=== PATIENT | male | born 1970 | race Hispanic/Latino ===

== ENCOUNTER 2019-10-04 20:41 | Inpatient (IN) | payer OTHER, MEDICARE ==
[~2019-10-04] VITALS: Ht 175.3 cm; Wt 90.4 kg
[2019-10-04] MEDS ORDERED: MORPHINE SULFATE 4 MG/1ML SYG ONE ×2 (21:34→22:50)
[2019-10-04] MEDS ORDERED: KETOROLAC TROMETHAMINE 30MG/ML ONE (21:34)
[2019-10-04 21:59] LABS: BASOPHILS % (AUTO) 0.2 % (0.0-5.0); EOSINOPHILS % (AUTO) 0.5 % (0.0-8.0); HEMATOCRIT 39.5 % (42-54); LYMPHOCYTES % (AUTO) 4.7 % (21.0-51.0); MEAN CORPUSCULAR HEMOGLOBIN 30.2 pg (27.0-33.0); MEAN CORPUSCULAR HGB CONC 34.7 g/dL (32.0-36.0); MONOCYTES % (AUTO) 5.1 % (3.0-13.0); NEUTROPHILS % (AUTO) 88.8 % (40.0-77.0); PLATELET COUNT (AUTO) 220 K/uL (130-400); RED BLOOD CELL COUNT(AUTO) 4.54 MIL/uL (4.50-6.20); RED CELL DISTRIBUTION WIDTH 12.3 % (11.0-15.5); WHITE BLOOD COUNT (AUTO) 19.8 K/uL (4.8-10.8)
[2019-10-04 22:12] LABS: CREATININE 1.1 mg/dL (0.5-1.5); POTASSIUM 3.8 mmol/L (3.5-5.1)
[2019-10-04 22:16] LABS: ALBUMIN 3.7 g/dL (3.5-5.0); BILIRUBIN,TOTAL 1.1 mg/dL (0.2-1.0); TOTAL PROTEIN, SERUM 6.6 g/dL (6.0-8.3)
[2019-10-04] MEDS ORDERED: ZOSYN 3.375GM+NS 50ML 50 ML IV ONE (22:38)
[2019-10-04] MEDS ORDERED: 1/2 NORMAL SALINE 1,000 ML IV ONE (23:42)
[2019-10-04] MEDS ORDERED: ONDANSETRON HCL 4 MG/2 ML VIAL ONE (23:48)
[2019-10-05] VITALS: BP 122/65
[2019-10-05] MEDS ORDERED: GABA600T10 PO (00:09)
[2019-10-05] MEDS ORDERED: MULT-1367 PO (00:09)
[2019-10-05] MEDS ORDERED: TELM40TA8 PO (00:09)
--- NOTE | 2019-10-05 01:08 | NUR ---
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
[2019-10-05] MEDS ORDERED: HYDROMORPHONE HCL 2 MG/ML VIAL IVP PRN (01:15)
[2019-10-05] MEDS ORDERED: HYDROMORPHONE HCL 0.5 MG/0.5 ML ML ONE ×2 (02:27→07:20)
[2019-10-05] MEDS ORDERED: 1/2 NORMAL SALINE 1,000 ML IV SCH (02:45)
[2019-10-05] MEDS: ZOSYN 3.375GM+NS 50ML 50 ML IV SCH ×3 (03:00→19:49)
[2019-10-05 04:00] VITALS: BP 131/68
[2019-10-05] MEDS: ONDANSETRON HCL 4 MG/2 ML VIAL IVP PRN ×4 (04:11→19:50)
[2019-10-05 05:07] LABS: HEMATOCRIT 37.4 % (42-54); MEAN CORPUSCULAR HEMOGLOBIN 30.5 pg (27.0-33.0); MEAN CORPUSCULAR HGB CONC 34.8 g/dL (32.0-36.0); MEAN CORPUSCULAR VOLUME 87.8 fL (79-99); RED BLOOD CELL COUNT(AUTO) 4.26 MIL/uL (4.50-6.20); RED CELL DISTRIBUTION WIDTH 12.4 % (11.0-15.5); WHITE BLOOD COUNT (AUTO) 18.4 K/uL (4.8-10.8)
[2019-10-05 05:28] LABS: ALBUMIN 3.1 g/dL (3.5-5.0); BILIRUBIN,TOTAL 1.4 mg/dL (0.2-1.0); CREATININE 1.3 mg/dL (0.5-1.5); POTASSIUM 3.9 mmol/L (3.5-5.1); TOTAL PROTEIN, SERUM 6.6 g/dL (6.0-8.3)
[2019-10-05 08:02] VITALS: BP 143/77
[2019-10-05] MEDS ORDERED: PANTOPRAZOLE 40 MG/VIAL IVP SCH (09:00)
[2019-10-05] MEDS: FAMOTIDINE/PF 20 MG/2 ML VIAL IV SCH ×2 (09:01→19:50)
[2019-10-05] MEDS: LACTATED RINGERS 1000ML 1,000 ML IV SCH ×2 (09:08→19:49)
[2019-10-05] MEDS: HYDROMORPHONE HCL 0.5 MG/0.5 ML ML IVP PRN ×3 (11:03→19:49)
[2019-10-05 11:32] VITALS: BP 141/76
[2019-10-05 16:15] VITALS: BP 140/67
[2019-10-05 20:31] VITALS: BP 121/76
[2019-10-06] VITALS (8 sets, daily range): BP systolic 136–176; BP diastolic 71–86
[2019-10-06] MEDS: HYDROMORPHONE HCL 0.5 MG/0.5 ML ML IVP PRN ×6 (00:07→22:30)
[2019-10-06] MEDS: ONDANSETRON HCL 4 MG/2 ML VIAL IVP PRN ×6 (00:11→22:30)
[2019-10-06] MEDS: LACTATED RINGERS 1000ML 1,000 ML IV SCH ×4 (00:11→21:28)
--- NOTE | 2019-10-06 00:16 | NUR ---
SHOWER/PAIN/NAUSEA Pt took a shower,medicated with Dilaudid for pain and Zofran for nausea.
[2019-10-06] MEDS: ZOSYN 3.375GM+NS 50ML 50 ML IV SCH ×3 (03:39→21:27)
--- NOTE | 2019-10-06 06:55 | NUR ---
MD Dr BONILLA came,he gave new orders.Report given to oncoming nurse Desiree Tadeo.
[2019-10-06 07:15] LABS: HEMATOCRIT 33.8 % (42-54); MEAN CORPUSCULAR HGB CONC 33.7 g/dL (32.0-36.0); MEAN CORPUSCULAR VOLUME 88.9 fL (79-99); RED BLOOD CELL COUNT(AUTO) 3.8 MIL/uL (4.50-6.20); RED CELL DISTRIBUTION WIDTH 12.7 % (11.0-15.5); WHITE BLOOD COUNT (AUTO) 17.1 K/uL (4.8-10.8)
[2019-10-06 07:31] LABS: ALBUMIN 2.6 g/dL (3.5-5.0); BILIRUBIN,TOTAL 1.1 mg/dL (0.2-1.0); CREATININE 1.1 mg/dL (0.5-1.5); POTASSIUM 3.6 mmol/L (3.5-5.1); TOTAL PROTEIN, SERUM 6.6 g/dL (6.0-8.3)
[2019-10-06] MEDS: FAMOTIDINE/PF 20 MG/2 ML VIAL IV SCH ×2 (08:22→21:27)
--- NOTE | 2019-10-06 10:53 | NUR ---
DCP: HOME SW met with pt who works at [facility] [employer], is independent of all ADLS, No DME or in home care services. PCP is Dr Curry and he uses [facility] when needed. Pt lives with his mother Genny Maldonado [phone]. Plan is home at mi Addendum: 10/06/19 at 1056 by ARRON ANTONIO SS Amended: Links added.
--- NOTE | 2019-10-06 15:02 | NUR ---
RD NOTIFICATION Pt admitted with Acute Cholecystitis. Pt NPO pending GI and Surgical evaluations, as per EMR. When medically feasible, Rec advance diet as tolerated to GI soft, Low Fat Diet order RD to follow up with Nutrition education. Addendum: 10/06/19 at [address] RD Amended: Links added.
--- NOTE | 2019-10-06 17:02 | NUR ---
DR BARBOSA CALL BACK. LABS REVIEWED, STATED HE DOES NOT NEED TO SEE THIS PATIENT. RECOMMENDS SX.
--- NOTE | 2019-10-06 18:30 | NUR ---
TALKED TO PATIENT ABOUT GI DOCTOR RECOMMENDING SX FOR HIM. EDUCATED PATIENT ON NEED FOR SX. PATIENT FINALLY AGREED. I TEXTED JOSIAS (DR PEG PATEL) BUT STILL WAITING ON TEXT OR CALL BACK. PATIENT IS NOW ON CLEAR LIQUID DIET, TOLERATING VERY WELL.
[2019-10-07] MEDS: ONDANSETRON HCL 4 MG/2 ML VIAL IVP PRN ×5 (02:30→21:19)
[2019-10-07] MEDS: HYDROMORPHONE HCL 0.5 MG/0.5 ML ML IVP PRN ×5 (02:30→21:20)
[2019-10-07 03:00] VITALS: BP 157/82
[2019-10-07 03:53] LABS: HEMATOCRIT 32.2 % (42-54); MEAN CORPUSCULAR HEMOGLOBIN 30.4 pg (27.0-33.0); MEAN CORPUSCULAR HGB CONC 33.9 g/dL (32.0-36.0); MEAN CORPUSCULAR VOLUME 89.9 fL (79-99); RED BLOOD CELL COUNT(AUTO) 3.58 MIL/uL (4.50-6.20); RED CELL DISTRIBUTION WIDTH 12.4 % (11.0-15.5); WHITE BLOOD COUNT (AUTO) 13.2 K/uL (4.8-10.8)
[2019-10-07 04:14] LABS: ALBUMIN 2.4 g/dL (3.5-5.0); BILIRUBIN,TOTAL 0.7 mg/dL (0.2-1.0); CREATININE 0.9 mg/dL (0.5-1.5); POTASSIUM 3.4 mmol/L (3.5-5.1); TOTAL PROTEIN, SERUM 6.5 g/dL (6.0-8.3)
[2019-10-07] MEDS: ZOSYN 3.375GM+NS 50ML 50 ML IV SCH ×3 (05:10→21:20)
[2019-10-07] MEDS: LACTATED RINGERS 1000ML 1,000 ML IV SCH ×2 (05:24→17:19)
[2019-10-07 08:01] VITALS: BP 137/71
[2019-10-07] MEDS: FAMOTIDINE/PF 20 MG/2 ML VIAL IV SCH ×2 (08:27→21:19)
--- NOTE | 2019-10-07 11:34 | NUR ---
DR RUVALCABA CALLED BACK. DR RUVALCABA SOUNDED VERY FRUSTRATED ALMOST YELLING, STATED "I OFFERED SURGERY A FEW DAYS AGO NOW I HAVE 10 CASES HERE IN [employer] [facility], YOU WERE FEEDING THE PATIENT" I EXPLAINED TO HIM THAT PATIENT WAS ON A CLEAR LIQUID DIET YESTERDAY PER DR BONILLA ORDERS, AND ALL DAY HE'S BEEN NPO. DR RUVALCABA STATED KEEP PATIENT NPO. HE THEN PROCEED TO HANG UP THE PHONE. NO ORDERS FOR SURGERY.
[2019-10-07 12:04] VITALS: BP 152/76
[2019-10-07 17:18] VITALS: BP 151/86
[2019-10-07 20:15] VITALS: BP 152/79
[2019-10-08] VITALS (7 sets, daily range): BP systolic 142–169; BP diastolic 66–86
[2019-10-08] MEDS: LACTATED RINGERS 1000ML 1,000 ML IV SCH ×3 (01:00→17:00)
[2019-10-08] MEDS: ONDANSETRON HCL 4 MG/2 ML VIAL IVP PRN ×3 (01:54→19:04)
[2019-10-08] MEDS: HYDROMORPHONE HCL 0.5 MG/0.5 ML ML IVP PRN ×5 (01:55→22:13)
[2019-10-08] MEDS: ZOSYN 3.375GM+NS 50ML 50 ML IV SCH ×3 (02:02→19:04)
[2019-10-08] MEDS: MULTIVITAMIN TABLET PO SCH (09:00)
[2019-10-08] MEDS: GABAPENTIN 300 MG CAPSULE PO SCH ×2 (09:00→21:00)
[2019-10-08] MEDS: LOSARTAN 50 MG TABLET PO SCH (09:00)
[2019-10-08] MEDS: FAMOTIDINE/PF 20 MG/2 ML VIAL IV SCH ×2 (09:05→21:31)
--- NOTE | 2019-10-08 14:49 | NUR ---
RD FOLLOW UP Pt NPO pending possible procedure. Post procedure, recommend advance diet as tolerated to GI Soft, Low fat diet order as medically feasible. RD to follow up with nutrition education. RD to continue to monitor. Please notify as additional nutrition concerns arise. Thank you. Addendum: 10/08/19 at [address] Amended: Links added.
[2019-10-08] MEDS ORDERED: LIDOCAINE HCL-MPF 1% 2ML VIAL IV PRN (23:00)
[2019-10-08] MEDS ORDERED: POTASSIUM CHLORIDE 20MEQ/100ML 100 ML IV PRN (23:00)
[2019-10-09] VITALS (26 sets, daily range): BP systolic 125–176; BP diastolic 64–92
[2019-10-09] MEDS: LACTATED RINGERS 1000ML 1,000 ML IV SCH ×4 (00:04→17:00)
[2019-10-09] MEDS: ZOSYN 3.375GM+NS 50ML 50 ML IV SCH (02:21)
[2019-10-09] MEDS: ONDANSETRON HCL 4 MG/2 ML VIAL IVP PRN (02:24)
[2019-10-09] MEDS: HYDROMORPHONE HCL 0.5 MG/0.5 ML ML IVP PRN (02:24)
[2019-10-09 05:36] LABS: BASOPHILS % (AUTO) 0.5 % (0.0-5.0); EOSINOPHILS % (AUTO) 1.2 % (0.0-8.0); HEMATOCRIT 36.2 % (42-54); LYMPHOCYTES % (AUTO) 13.5 % (21.0-51.0); MEAN CORPUSCULAR HEMOGLOBIN 29.9 pg (27.0-33.0); MEAN CORPUSCULAR VOLUME 88.1 fL (79-99); MONOCYTES % (AUTO) 12.3 % (3.0-13.0); NEUTROPHILS % (AUTO) 70.6 % (40.0-77.0); PLATELET COUNT (AUTO) 263 K/uL (130-400); RED BLOOD CELL COUNT(AUTO) 4.11 MIL/uL (4.50-6.20); WHITE BLOOD COUNT (AUTO) 10.5 K/uL (4.8-10.8)
[2019-10-09] MEDS ORDERED: FENTANYL CITRATE PF 50 MCG/1 ML 5ML AMP IV ONE (05:52)
[2019-10-09] MEDS ORDERED: LIDOCAINE PF 2% 5ML ABBOJECT ONE (05:52)
[2019-10-09] MEDS ORDERED: MIDAZOLAM HCL 1 MG/ML 2ML VIAL ONE (05:52)
[2019-10-09] MEDS ORDERED: ROCURONIUM 10MG/1ML SYR 10 MG/ML ML ONE (05:52)
[2019-10-09] MEDS ORDERED: PROPOFOL 10 MG/ML 20ML VIAL IV ONE (05:52)
[2019-10-09 05:55] LABS: ALBUMIN 2.8 g/dL (3.5-5.0); BILIRUBIN,TOTAL 0.6 mg/dL (0.2-1.0); CREATININE 1.1 mg/dL (0.5-1.5); POTASSIUM 3.6 mmol/L (3.5-5.1); TOTAL PROTEIN, SERUM 7.4 g/dL (6.0-8.3)
[2019-10-09] MEDS ORDERED: NEOSTIGMINE 5MG/5ML SYR IV ONE (05:57)
[2019-10-09] MEDS ORDERED: DEXAMETHASONE SOD PHOSPHATE 10MG/ML 1ML VIAL ONE (05:57)
[2019-10-09] MEDS ORDERED: ONDANSETRON HCL 4 MG/2 ML VIAL ONE (05:57)
[2019-10-09] MEDS ORDERED: GLYCOPYRROLATE 1 MG/5 ML SYRINGE ONE (05:57)
[2019-10-09] MEDS ORDERED: ALBUMIN (HUMAN) 5% 250 ML IV ONE ×2 (06:08→06:10)
[2019-10-09] MEDS ORDERED: BUPIVACAINE/PF 0.5% 30ML VIAL ONE (06:08)
[2019-10-09] MEDS ORDERED: IOHEXOL-350 50ML VIAL IV ONE (06:35)
[2019-10-09] MEDS ORDERED: GLUCAGON 1MG KIT 1 MG ML ONE (07:00)
--- NOTE | 2019-10-09 08:10 | NUR ---
RECEIVED REPORT FROM NURSE CHAKA RODRIGUEZ.
--- NOTE | 2019-10-09 08:40 | NUR ---
POST OP NOTE: PT. RETURNED TO ROOM, AWAKE AND ALERT AND DENIES PAIN AT THIS TIME. 4 SMALL PUNCTURE WOUNDS TO ABD WITH DRESSINGS IN PLACE WHICH ARE CLEAN AND DRY. SCDS BACK ON AND REG DIET ORDERED. ALSO ENCOURAGED TO DEEP BREATHE AND COUGH.
[2019-10-09] MEDS ORDERED: TRAMADOL HCL 50 MG TABLET PO PRN (09:45)
[2019-10-09] MEDS ORDERED: ACETAMINOPHEN 325 MG TAB PO PRN (09:45)
[2019-10-09] MEDS: LOSARTAN 50 MG TABLET PO SCH (10:09)
[2019-10-09] MEDS: GABAPENTIN 300 MG CAPSULE PO SCH ×2 (10:09→22:03)
[2019-10-09] MEDS: FAMOTIDINE/PF 20 MG/2 ML VIAL IV SCH ×2 (10:09→22:03)
[2019-10-09] MEDS: MULTIVITAMIN TABLET PO SCH (10:09)
[2019-10-09] MEDS: TRAMADOL HCL 50 MG TABLET PO PRN ×2 (12:44→19:02)
--- NOTE | 2019-10-09 12:45 | NUR ---
MEDICATED FOR PAIN. ULTRAM 100MG PO GIVEN
--- NOTE | 2019-10-09 14:00 | NUR ---
SECOND VOID NOW, URINE CLEAR AND QS.
--- NOTE | 2019-10-09 18:00 | NUR ---
WALKING IN HALLWAY, STATES FEELING OK. HAS TAKEN PRUNE JUICE AND FEELS LIKE HE WILL HAVE A BM.
[2019-10-10] VITALS: BP 139/76
[2019-10-10] MEDS: LACTATED RINGERS 1000ML 1,000 ML IV SCH (01:00)
[2019-10-10] MEDS: TRAMADOL HCL 50 MG TABLET PO PRN ×2 (01:17→08:28)
[2019-10-10 04:00] VITALS: BP 140/74
--- NOTE | 2019-10-10 06:36 | NUR ---
MD ROUNDS DR. BONILLA HERE TO SEE PATIENT. SPOKE WITH HIM. PATIENT HAS BEEN PASSING GAS AND WALKING. ALSO TOOK SOME PRUNE JUICE YESTERDAY, BUT HAS NOT HAD A BOWEL MOVEMENT. NO FEVERS. PATIENT INQUIRED ABOUT LAB WORK FOR THIS MORNING, BUT DR. BONILLA EXPLAINED HE DIDN'T NEED IT. ORDERS RECEIVED FOR PATIENT TO RECEIVE LACTULOSE TO HELP HIM HAVE BM AND CAN BE DISCHARGED HOME AFTERWARDS, FOLLOW UP WITH DR. BONILLA THIS WEEK. PROVIDED PRESCRIPTION FOR PROTONIX AND TO REFER TO DR. RUVALCABA'S PRESCRIPTIONS IN CHART FOR OTHER DISCHARGE MEDS.
[2019-10-10] MEDS ORDERED: PANT40TA PO (06:39)
[2019-10-10 08:00] VITALS: BP 133/79
--- NOTE | 2019-10-10 08:00 | NUR ---
DISCHARGE ORDERS IN PLACE FROM DR. BONILLA. WILL NEED OK FROM DR. RUVALCABA. ONLY C/O FROM PT. IS THAT HE HAS NOT A STOOL THE 2ND,
[2019-10-10] MEDS: LACTULOSE 20 GM/30 ML UDCUP PO SCH ×3 (08:16→15:27)
[2019-10-10] MEDS: FAMOTIDINE/PF 20 MG/2 ML VIAL IV SCH (08:17)
[2019-10-10] MEDS: GABAPENTIN 300 MG CAPSULE PO SCH (08:17)
[2019-10-10] MEDS: LOSARTAN 50 MG TABLET PO SCH (08:17)
[2019-10-10] MEDS: MULTIVITAMIN TABLET PO SCH (08:17)
--- NOTE | 2019-10-10 09:30 | NUR ---
STATES WANTS TO BE OUT OF HOSP. BY LUNCH TIME. TOLD HIM WE STILL NEED OK FROM DR. RUAVLCABA AND THAT HE NEEDED TO HAVE A BM BEFORE DISCHARGED.
[2019-10-10 12:00] VITALS: BP 128/80
--- NOTE | 2019-10-10 14:00 | NUR ---
HAS BEEN GIVEN LACTULOSE AND HAS BEEN WALKING IN HALLWAY, STATES FEELS HIS STOMACH RAMBLING.
--- NOTE | 2019-10-10 15:00 | NUR ---
GOT AN OK FROM DR. RUVALCABA TO [facility] PT.
[2019-10-10 16:00] VITALS: BP 140/77
--- NOTE | 2019-10-10 18:00 | NUR ---
FINALLY HAD 2 BMS, READY FOR DISCHARGE, SALINE LOCK REMOVED AND DC PAPERS GIVEN, FAMILY WILL BE HERE IN 15 MIN. PT. STATES
--- NOTE | 2019-10-10 18:40 | NUR ---
WHEELED TO ER AREA. FAMILY WAITING. NO C/O VOICED AT TIME OF DC. WILL CALL IN AM TO [facility]. FOLLOW UP APPT.VERBALIZED UNDERSTANDING OF ALL INST. GIVEN.
== END 2019-10-10 18:20 | disposition home or self-care (01) | DRG 417 ==
LOC: EEVIPCON 20:41 → EDH 20:41 → EDHIP 22:57 → OBSVTOIN 22:57 → 3BH 10-05 00:03
PROVIDERS: ADMIT Internal Medicine; ATTEND Internal Medicine
PROC: 0FT44ZZ Resection of Gallbladder, Percutaneous Endoscopic Approach (ICD-10-PCS; principal; 2019-10-09 06:30)
PROC: BF141ZZ Fluoroscopy of Gallbladder, Bile Ducts and Pancreatic Ducts using Low Osmolar Contrast (ICD-10-PCS; 2019-10-09 06:30)
DX: K80.00 Calculus of gallbladder with acute cholecystitis without obstruction (principal); K85.90 Acute pancreatitis without necrosis or infection, unspecified; I10 Essential (primary) hypertension; K59.00 Constipation, unspecified; K82.8 Other specified diseases of gallbladder; M19.90 Unspecified osteoarthritis, unspecified site; Z88.8 Allergy status to other drugs, medicaments and biological substances
CPT/HCPCS: 36415; 74300; 76705; 80053; 82150; 83690; 84484; 85025; 85027; 93005; 99291; C1758; G0378; J1100; J1170; J1610; J1885; J2001; J2250; J2270; J2405; J2543; J2704; J2710; J3010; J3490; J7030; J7120; P9045; Q9967

== ENCOUNTER 2019-11-10 19:30 | Emergency (ER) | payer OTHER, MEDICARE ==
[~2019-11-10 19:30] MED LIST: GABA600T10 PO; MULT-1367 PO; PANT40TA PO; TELM40TA8 PO
[2019-11-10 19:54] LABS: APPEARANCE,URINE Clear (CLEAR); BILIRUBIN,URINE Negative (NEGATIVE); COLOR,URINE Yellow (YELLOW); GLUCOSE, URINE (UA) Negative (NEGATIVE); KETONES,URINE Negative (NEGATIVE); LEUKOCYTE ESTERASE ,URINE Negative (NEGATIVE); NITRATE,URINE Negative (NEGATIVE); OCCULT BLOOD,URINE Negative (NEGATIVE); PROTEIN,URINE Negative (NEGATIVE); UROBILINOGEN,URINE 0.2 mg/dL (0.2-1.0)
[2019-11-10 20:01] LABS: AMPHET/METH SCREEN,URINE NEGATIVE (NEGATIVE); BARBITURATE SCREEN, URINE NEGATIVE (NEGATIVE); BENZODIAZEPINES SCREEN,URINE POSITIVE (NEGATIVE); CANNABINOID SCREEN,URINE NEGATIVE (NEGATIVE); COCAINE SCREEN,URINE NEGATIVE (NEGATIVE); OPIATE SCREEN,URINE NEGATIVE (NEGATIVE); PHENCYCLIDINE SCREEN,URINE NEGATIVE (NEGATIVE)
[2019-11-10] MEDS ORDERED: THIAMINE HCL 100 MG/ML 2ML VIAL ONE (20:27)
[2019-11-10] MEDS ORDERED: TETANUS/DIPHTHERIA TOXOID [ADULT] 0.5 ML VIAL IM ONE (20:28)
[2019-11-10 20:51] LABS: BASOPHILS % (AUTO) 0.7 % (0.0-5.0); EOSINOPHILS % (AUTO) 1.4 % (0.0-8.0); HEMATOCRIT 44.8 % (42-54); LYMPHOCYTES % (AUTO) 34.7 % (21.0-51.0); MEAN CORPUSCULAR HEMOGLOBIN 30.5 pg (27.0-33.0); MEAN CORPUSCULAR HGB CONC 33.5 g/dL (32.0-36.0); MEAN CORPUSCULAR VOLUME 91.1 fL (79-99); MONOCYTES % (AUTO) 6.6 % (3.0-13.0); NEUTROPHILS % (AUTO) 56.1 % (40.0-77.0); PLATELET COUNT (AUTO) 307 K/uL (130-400); RED BLOOD CELL COUNT(AUTO) 4.92 MIL/uL (4.50-6.20); RED CELL DISTRIBUTION WIDTH 15.9 % (11.0-15.5); WHITE BLOOD COUNT (AUTO) 8.4 K/uL (4.8-10.8)
[2019-11-10 21:02] LABS: CREATININE 0.9 mg/dL (0.5-1.5); POTASSIUM 3.8 mmol/L (3.5-5.1)
[2019-11-10 21:06] LABS: ALBUMIN 3.8 g/dL (3.5-5.0); BILIRUBIN,TOTAL 0.3 mg/dL (0.2-1.0); TOTAL PROTEIN, SERUM 7.7 g/dL (6.0-8.3)
[2019-11-10 22:05] LABS: SALICYLATE < 2.8 mg/dL (2.8-20.0)
[2019-11-10 22:06] LABS: ACETAMINOPHEN < 1 mcg/mL (10-29); ALCOHOL, BLOOD 288 mg/dL (0-10)
[2019-11-10] MEDS ORDERED: OCTYL 2-CYANOACRYLATE 1 EACH TP ONE (22:14)
== END 2019-11-11 09:40 | disposition home or self-care (01) ==
LOC: EDH 19:30
DX: S01.112A Laceration without foreign body of left eyelid and periocular area, initial encounter (principal); F10.129 Alcohol abuse with intoxication, unspecified; F13.129 Sedative, hypnotic or anxiolytic abuse with intoxication, unspecified; F41.9 Anxiety disorder, unspecified; Z90.49 Acquired absence of other specified parts of digestive tract; Z91.041 Radiographic dye allergy status; Z85.47 Personal history of malignant neoplasm of testis; W18.39XA Other fall on same level, initial encounter; Y92.89 Other specified places as the place of occurrence of the external cause; Y93.89 Activity, other specified; Y99.8 Other external cause status
CPT/HCPCS: 12051; 36415 ×2; 70450; 71045; 72125; 72170; 80053; 80305; 81003; 82550; 84484; 85025; 90471; 90714; 93005; 96365; 96366; 99285; G0480 ×3; G0481; J3411